=== PATIENT | female | born 1990 | race Caucasian/White ===

== ENCOUNTER → 2018-05-06 15:02 | Outpatient (CLI) | payer OTHER ==
[2016-04-11 05:00] VITALS: BMI 25.7
[~2018-05-06 15:02] MED LIST: HYDROCODON-ACE1 EAC7 PO; IBUPROFEN600 MG PO; PRENATAL COMPLE1 TAB PO
== END | disposition home or self-care (01) ==
LOC: D.LDO 15:02
DX: O36.8190 Decreased fetal movements, unspecified trimester, not applicable or unspecified (principal); Z3A.00 Weeks of gestation of pregnancy not specified

== ENCOUNTER → 2018-05-09 14:44 | Outpatient (CLI) | payer OTHER ==
[2016-04-11 05:00] VITALS: BMI 25.7
== END | disposition home or self-care (01) ==
LOC: D.LDO 14:44
DX: O36.5930 Maternal care for other known or suspected poor fetal growth, third trimester, not applicable or unspecified (principal); Z3A.34 34 weeks gestation of pregnancy

== ENCOUNTER 2018-06-19 23:36 | Inpatient (IN) | payer OTHER ==
[~2018-06-19] VITALS: Ht 175.3 cm; Wt 80.7 kg
[2018-06-20 01:56] LABS: MCHC 34.3 g/dL (31.0-37.0); MCV 87.5 fL (80.0-100.0); MEAN PLATELET VOLUME 10.2 fL (7.4-10.4); RDW 12.6 % (11.5-14.5); WBC 9.7 10x3/uL (4.8-10.8)
[2018-06-20 01:59] LABS: APPEARANCE CLEAR (CLEAR); BILIRUBIN NEGATIVE (NEGATIVE); COLOR YELLOW (YELLOW); GLUCOSE NEGATIVE (NEGATIVE); KETONE NEGATIVE (NEGATIVE); NITRITE NEGATIVE (NEGATIVE); PROTEIN NEGATIVE (NEGATIVE); UROBILINOGEN NORMAL (NORMAL)
[2018-06-20] MEDS ORDERED: SYNTHROID125 MCG (07:41)
[2018-06-20 07:43] VITALS: BP 124/67
[2018-06-20 13:22] VITALS: BP 108/71; Ht 175.3 cm; Wt 80.7 kg
[2018-06-20 13:30] VITALS: BP 108/71
[2018-06-20 20:00] VITALS: BP 105/64
[2018-06-21 06:14] LABS: RAPID PLASMA REAGIN Non Reactive (Non Reactive)
[2018-06-21] MEDS ORDERED: HYDROCODON-ACE1 EAC7 PO (10:54)
[2018-06-21] MEDS ORDERED: IBUPROFEN600 MG PO (10:54)
== END 2018-06-21 12:00 | disposition home or self-care (01) | DRG 807 ==
LOC: D.LD 23:36 → D.LDO 23:36 → D.LD 06-20 01:20
PROVIDERS: Obstetrics & Gynecology
PROC: 10E0XZZ Delivery of Products of Conception, External Approach (ICD-10-PCS; principal; 2018-06-20)
PROC: 10907ZC Drainage of Amniotic Fluid, Therapeutic from Products of Conception, Via Natural or Artificial Opening (ICD-10-PCS; 2018-06-20)
DX: O99.284 Endocrine, nutritional and metabolic diseases complicating childbirth (principal); Z37.0 Single live birth; E03.9 Hypothyroidism, unspecified; Z3A.40 40 weeks gestation of pregnancy; O26.893 Other specified pregnancy related conditions, third trimester; Z67.91 Unspecified blood type, Rh negative